=== PATIENT | male | born 1980 | race Two or more races ===

== ENCOUNTER 2018-08-02 21:58 | Emergency (ER) | payer OTHER ==
[~2018-08-02] VITALS: Ht 175.3 cm; Wt 83.5 kg
[2018-08-02 22:10] VITALS: BP 121/76
[2018-08-02] MEDS ORDERED: IBUPROFEN600 MG ORAL (22:51)
[2018-08-02 23:00] VITALS: BP 123/68
--- NOTE | 2018-08-03 00:08 | Emergency Room Report ---
History of Present Illness General Chief Complaint: Upper Extremity Injury Source: Patient Present Illness HPI Patient is a 38-year-old male who presented after increased left upper extremity discomfort. Patient recent injury several weeks ago in which patient cut the left wrist. The patient denies any foreign body sensation. He reports having continued pain worse with lifting weight. Patient reports being right-hand dominant. 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 Allergies: Coded Allergies: No Known Allergies (Unverified , 08/02/18) Patient History Past Medical History: see triage record Reviewed Nursing Documentation: PMH: Agreed; PSxH: Agreed Nursing Documentation-PMH Past Medical History: No Stated History Review of Systems All Other Systems: negative except mentioned in HPI Physical Exam Vital Signs Date Time Temp Pulse Resp B/P (MAP) Pulse Ox O2 Delivery O2 Flow Rate FiO2 08/02/18 22:01 97.9 76 16 121/76 98 Room Air 97.9 General Appearance: well appearing, no apparent distress, alert, GCS 15, non- toxic Head: normocephalic, atraumatic ENT: hearing grossly normal, normal voice Neck: full range of motion, supple Respiratory: no respiratory distress, speaking full sentences Musculoskeletal: decreased range of mation, other - no laceration noted Neurologic: oriented x3, responsive, 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 Differential diagnosis included fracture, dislocation, scapphoid fracture, sprain, ganglion cyst, septic joint , arthritis, abscess among others. Wrist Xray was ordered. The patient noted to have no evidence of acute fracture dislocation on x-ray imaging interpret by me. The patient was placed in Radu wrap. He is placed on light duty at work. The patient not to lift anything greater than 20 pounds. The patient follow-up with workers comp physician. Last Vital Signs Date Time Temp Pulse Resp B/P (MAP) Pulse Ox O2 Delivery O2 Flow Rate FiO2 08/02/18 23:00 98.6 68 16 123/68 99 Room Air Status: improved Disposition: HOME, SELF-CARE Condition: Stable Scripts Ibuprofen* (MOTRIN*) 600 Mg Tablet 600 MG ORAL Q8H PRN for For Pain, #30 TAB 0 Refills Prov: Adolph Currie MD 08/02/18 Departure Forms: Return to Work Return to Work in (Days): 1 Other Restrictions: light duty Patient Instructions: Wrist Sprain Adolph Currie MD Aug 03, 2018 00:08
--- NOTE | 2018-08-03 10:15 | Diagnostic Imaging Report ---
Clinical Indication:Left wrist pain, after glass broke and fell on wrist approximately 3 weeks ago Technique: 3 views of the left wrist Comparison: None Findings: No radiopaque foreign body demonstrated. No acute fractures. No dislocations. The joint spaces are preserved Impression: Negative
== END 2018-08-02 23:03 | disposition home or self-care (01) ==
LOC: EMR 22:35
DX: M25.532 Pain in left wrist (principal)
CPT/HCPCS: 99283